=== PATIENT | male | born 1995 | race Hispanic/Latino ===

== ENCOUNTER 2020-10-15 12:26 | Emergency (ER) | payer SELFPAY ==
[2020-10-15 12:33] VITALS: BP 122/72
--- NOTE | 2020-10-15 13:03 | Emergency Department Report ---
Minor Respiratory - HPI Chief Complaint: Upper Respiratory Infection Stated Complaint: COUGHING Time Seen by Provider: 10/15/20 12:30 Duration: 3 Days Pain Location: Throat, Nose, Chest Severity: mild Minor Respiratory: Yes Rhinorrhea, Yes Sore Throat, Yes Able to Tolerate Fluids, Yes Cough, No Ear Pain, No Sick Contacts, No Hemoptysis, No Chest Pain, No Shortness of Breath, No Fever Other History: 25 yo comes to ER with sore throat, headache, pressure in ears and a cough worse at night. No chest pain. No sob. no fever or chills. Pt is ambulatory non ill and non toxic on arrival to ER. He has no known exposure to covid ED Review of Systems ROS: Stated complaint: COUGHING Other details as noted in HPI Comment: All other systems reviewed and negative ED Past Medical Hx - Past Medical History Previous Medical History?: No - Surgical History Additional Surgical History: RIGHT ARM/ T&A - Social History Smoking Status: Current Every Day Smoker Substance Use Type: Alcohol, Marijuana - Medications Home Medications: Home Medications Medication Instructions Recorded Confirmed Last Taken Type Amoxicillin [Trimox CAP] 500 mg PO BID #20 capsule 10/15/20 Unknown Rx Cetirizine HCl [ZyrTEC] 10 mg PO DAILY #30 capsule 10/15/20 Unknown Rx Fluticasone [Flonase] 1 spray NS QDAY #1 bottle 10/15/20 Unknown Rx predniSONE [Deltasone] 20 mg PO DAILY #5 tablet 10/15/20 Unknown Rx Minor Respiratory Exam - Exam General: Vital signs noted. No distress. Alert and acting appropriately. HEENT: Yes Pharyngeal Erythema, Yes Moist Mucous Membranes, Yes Frontal Tenderness, Yes Maxillary Tenderness, No Pharyngeal Exudates, No Rhinorrhea, No Conjuctival Injection Ear: Neither TM Bulge, Neither TM Erythema, Neither EAC Pain, Neither EAC Discharge Neck: Yes Supple, No Adenopathy Lungs: Yes Good Air Exchange, No Wheezes, No Ronchi, No Stridor, No Cough, No Labored Respirations, No Retractions, No Use of Accessory Muscles, No Other Abnormal Lung Sounds Heart: Yes Regular, No Murmur Abdomen: Yes Normal Bowel Sounds, No Tenderness, No Peritoneal Signs Skin: No Rash, No Edema Neurologic: Alert and oriented, no deficits. Musculoskeletal: Unremarkable. ED Course Vital Signs 10/15/20 12:32 Temperature 98.6 F Pulse Rate 85 Respiratory 18 Rate Blood Pressure 122/72 O2 Sat by Pulse 96 Oximetry ED Medical Decision Making - Radiology Data Radiology results: report reviewed, image reviewed nap - Medical Decision Making xray nap Vital Signs 10/15/20 12:32 Temperature 98.6 F Pulse Rate 85 Respiratory 18 Rate Blood Pressure 122/72 O2 Sat by Pulse 96 Oximetry Pt dc home with dc plan of care including pcp follow up. He verbalizes understanding of plan of care. Pt ambulatory and non ill appearing on d/c. Taking PO. - Differential Diagnosis ro pna Critical care attestation.: If time is entered above; I have spent that time in minutes in the direct care of this critically ill patient, excluding procedure time. ED Disposition Clinical Impression: Upper respiratory infection, Allergies, Sinusitis, Bronchitis Disposition: DC-01 TO HOME OR SELFCARE Is pt being admited?: No Does the pt Need Aspirin: No Condition: Stable Instructions: Chronic Bronchitis (ED) Additional Instructions: rest hydrate well with water meds as ordered follow up with pcp referral below Prescriptions: predniSONE [Deltasone] 20 mg PO DAILY #5 tablet Fluticasone [Flonase] 1 spray NS QDAY #1 bottle Amoxicillin [Trimox CAP] 500 mg PO BID #20 capsule Cetirizine HCl [ZyrTEC] 10 mg PO DAILY #30 capsule Referrals: PRIMARY MD STACI [Primary Care Provider] - 3-5 Days LUIS WILLETT MD [Staff Physician] - 3-5 Days Forms: Work/School Release Form(ED) Time of Disposition: 13:18
--- NOTE | 2020-10-15 13:16 | XRay Report ---
CHEST 2 VIEWS INDICATION / CLINICAL INFORMATION: COUGH. COMPARISON: None available. FINDINGS: SUPPORT DEVICES: None. HEART / MEDIASTINUM: No significant abnormality. LUNGS / PLEURA: No significant pulmonary or pleural abnormality. No pneumothorax. ADDITIONAL FINDINGS: No significant additional findings. IMPRESSION: 1. No acute findings. Signer Name: Dylon Clark MD Signed: 10/15/2020 1:12 PM Workstation Name: [id number]
== END 2020-10-15 13:26 | disposition home or self-care (01) ==
LOC: ED 12:26
DX: J01.90 Acute sinusitis, unspecified (principal); T78.49XA Other allergy, initial encounter; J40 Bronchitis, not specified as acute or chronic; F17.200 Nicotine dependence, unspecified, uncomplicated; F12.10 Cannabis abuse, uncomplicated; Z79.899 Other long term (current) drug therapy
CPT/HCPCS: 71046; 99283

== ENCOUNTER 2021-03-04 13:00 | Emergency (ER) | payer SELFPAY ==
--- NOTE | 2021-03-04 14:52 | Emergency Department Report ---
Chief Complaint: Skin/Abscess/Foreign Body Stated Complaint: BITE ON ANKLE Time Seen by Provider: 03/04/21 14:48 - HPI History of Present Illness: 25-year-old male patient presents emergency department with complaints of discoloration to his left ankle starting 1 week ago. Patient states the area began as a small insect bite. A few days later, he began to develop bruising to the area. There was no trauma or injury to the affected area. States the area feels "painful/burning/itching." Patient is not diabetic. He has not taken any medication since this problem began. There has been no purulent drainage. Denies fever, chills, hip pain, knee pain, paresthesias, numbness, weakness. Denies all other complaints at this time. - ROS Review of Systems: GENERAL: Negative for fever. CARDIOVASCULAR: Negative for chest pain. PULMONARY: Negative for shortness of breath. GASTROINTESTINAL: Negative for abdominal pain. MUSCULOSKELETAL: Negative for back pain. NEUROLOGICAL: Negative for headache. INTEGUMENTARY: Positive for ecchymosis. - Exam Vital Signs: Vital Signs 03/04/21 13:29 Temperature 98.8 F Pulse Rate 84 Respiratory 16 Rate Blood Pressure 128/76 O2 Sat by Pulse 97 Oximetry Physical Exam: General: Awake, appropriately interactive, no acute distress. Neck: Supple. Full range of motion intact. Cardiovascular: Normal peripheral perfusion. Pulmonary: No respiratory distress. Patient is speaking normally without use of accessory muscles. Skin: Small area of ecchymosis to the left lateral ankle with superficial puncture wound. No overlying warmth or erythema. No fluctuance. Neurological: No facial asymmetry. Speech is clear. Follows commands. Patient is alert and oriented. Strength and sensation intact throughout. Musculoskeletal: Moves all four extremities spontaneously with normal range of motion. Ambulatory without assistance. Psych: Cooperative. Appropriate mood and affect. ED Medical Decision Making - Medical Decision Making Patient presents to the emergency department with a small area of ecchymosis to his left ankle for 1 week. He is afebrile, hemodynamically stable, neurovascularly intact, ambulatory without assistance. No clinical evidence to suggest concomitant bacterial infection warranting further diagnostic work-up on an emergent basis at this time. Patient will be discharged home with instructions for appropriate symptomatic treatment and referred to primary care provider for close outpatient follow-up. Patient expressed understanding and is agreeable to plan of care. Strict return precautions provided. History, exam, diagnostic testing, and current condition do not suggest worrisome pathology to warrant further testing, continued ED treatment, admission, or surgical evaluation at this point. Given the low probability of a significant medical illness, it would be more likely to result in harm than benefit to perform further testing at this stage. Discussed findings, presumptive diagnosis, need for follow-up and specific signs/symptoms that should prompt immediate return to the emergency department. Instructions were explained in detail to the patient in addition to giving written discharge information. Patient expressed understanding and was given the opportunity to ask questions, all of which were satisfactorily answered prior to discharge home. ED Disposition for MSE Clinical Impression: Ankle bruise Qualifiers: Encounter type: initial encounter Laterality: left Qualified Code(s): S90.02XA - Contusion of left ankle, initial encounter Disposition: TO HOME OR SELFCARE Is pt being admited?: No Does the pt Need Aspirin: No Condition: Stable Instructions: How to Use Cold Therapy Additional Instructions: Take Tylenol every 4 hours and Motrin every 8 hours as needed for pain. Apply ice to affected area as needed. Keep left ankle elevated as often as possible to reduce bruising/swelling. Follow-up with primary care provider this week. Call today to schedule an appointment. See referral information below. Return to the emergency department immediately for new or worsening symptoms. Referrals: LUIS WILLETT MD [Staff Physician] - 3-5 Days [facility] [Provider Group] - 3-5 Days [facility] [Outside] - 3-[address] [facility] [Outside] - 3-5 Days [facility] [Outside] - 3-5 Days Forms: Work/School Release Form(ED) Time of Disposition: 14:52
== END 2021-03-04 15:37 | disposition home or self-care (01) ==
LOC: ED 13:00
CPT/HCPCS: 99281